=== PATIENT | female | born 1970 | race American Indian/Alaskan Native ===

== ENCOUNTER 2017-10-25 17:05 | Emergency (ER) | payer SELFPAY ==
--- NOTE | 2017-10-25 23:54 | Emergency Department Report ---
- General Chief Complaint: Upper Respiratory Infection Stated Complaint: FLU LIKE SYMPTOMS Time Seen by Provider: 10/25/17 23:24 Source: patient Mode of arrival: Ambulatory Limitations: No Limitations - History of Present Illness Initial Comments: 47-year-old female past medical history none presents with complaint of 5 days of sore throat nasal congestion and nasal drainage slightly productive cough. Patient awake alert and oriented 3 not in acute distress accompanied by at bedside. Primarily complaining of slightly productive cough. States she has multiple sick contacts at home with cold-like symptoms. Denies dysuria hematuria or abdominal pain chest pain shortness of breath at rest palpitations. Denies any recent travel denies any rash. Denies diffuse body aches. States she has been taking [id number] cold medicine with minimal relief of her symptoms. MD Complaint: cough, rhinorrhea, nasal congestion Onset/Timin -: days(s) Severity: mild Improves With: OTC cold medicine Context: sick contacts Associated Symptoms: rhinorrhea, nasal congestion, sore throat, cough Treatments Prior to Arrival: Acetaminophen - Related Data Previous Rx's Medication Instructions Recorded Last Taken Type Cyclobenzaprine [Flexeril 10mg] 10 mg PO TID PRN #30 tablet 11/17/14 Unknown Rx HYDROcodone/APAP 5-325 [[place] 1 each PO Q6HR PRN #20 tablet 11/17/14 Unknown Rx 5-325 mg TAB] Ibuprofen [Motrin] 600 mg PO Q8H PRN #60 tablet 11/17/[address] [Voltaren Dr] 75 mg PO Q12H #30 tablet 12/13/14 Unknown Rx traMADol [Ultram 50 MG tab] 50 mg PO Q6HR PRN #16 tablet 12/13/14 Unknown Rx Benzonatate [Tessalon Perles] 100 mg PO Q8HR PRN #30 capsule 10/25/17 Unknown Rx Dextromethorphan/Benzocaine 1 each PO Q4H PRN #1 box 10/25/17 Unknown Rx [Cepacol Sorethroat-Cough Logan] Naproxen 500 mg PO BID PRN #30 tablet 10/25/17 Unknown Rx Phenylephrine/Dm/Acetaminop/GG 10 ml PO Q6H PRN #1 bottle 10/25/17 Unknown Rx [Mucinex Mcjv-Drr-Sinbjqfbyr Lq] Allergies Allergy/AdvReac Type Severity Reaction Status Date / Time Penicillins AdvReac Unknown Verified 11/17/14 16:00 ED Review of Systems ROS: Stated complaint: FLU LIKE SYMPTOMS Other details as noted in HPI Constitutional: denies: chills, fever Eyes: denies: eye pain, eye discharge, vision change ENT: throat pain, congestion. denies: ear pain Respiratory: cough. denies: shortness of breath, wheezing Cardiovascular: denies: chest pain, palpitations Endocrine: no symptoms reported Gastrointestinal: denies: abdominal pain, nausea, diarrhea Genitourinary: denies: urgency, dysuria, discharge Musculoskeletal: denies: back pain, joint swelling, arthralgia Skin: denies: rash, lesions Neurological: denies: headache, weakness, paresthesias Psychiatric: denies: anxiety, depression Hematological/Lymphatic: denies: easy bleeding, easy bruising ED Past Medical Hx - Past Medical History Previous Medical History?: No - Surgical History Past Surgical History?: Yes Additional Surgical History: Tubal Ligation - Social History Smoking Status: Never Smoker Substance Use Type: Alcohol - Medications Home Medications: Home Medications Medication Instructions Recorded Confirmed Last Taken Type Cyclobenzaprine [Flexeril 10mg] 10 mg PO TID PRN #30 tablet 11/17/14 12/13/14 Unknown Rx HYDROcodone/APAP 5-325 [[place] 1 each PO Q6HR PRN #20 tablet 11/17/14 12/13/14 Unknown Rx 5-325 mg TAB] Ibuprofen [Motrin] 600 mg PO Q8H PRN #60 tablet 11/17/14 12/13/[address] [Danish Ross] 75 mg PO Q12H #30 tablet 12/13/14 Unknown Rx traMADol [Ultram 50 MG tab] 50 mg PO Q6HR PRN #16 tablet 12/13/14 Unknown Rx Benzonatate [Tessalon Perles] 100 mg PO Q8HR PRN #30 capsule 10/25/17 Unknown Rx Dextromethorphan/Benzocaine 1 each PO Q4H PRN #1 box 10/25/17 Unknown Rx [Cepacol Sorethroat-Cough Logan] Naproxen 500 mg PO BID PRN #30 tablet 10/25/17 Unknown Rx Phenylephrine/Dm/Acetaminop/GG 10 ml PO Q6H PRN #1 bottle 10/25/17 Unknown Rx [Mucinex Esge-Kzo-Apxlzulxmo Lq] ED Physical Exam - General Limitations: No Limitations General appearance: alert, in no apparent distress - Head Head exam: Present: atraumatic, normocephalic - Eye Eye exam: Present: normal appearance, PERRL, EOMI - ENT ENT exam: Present: normal orophraynx (no peritonsillar abscess no tonsillar exudates uvula is midline), mucous membranes moist - Neck Neck exam: Present: normal inspection, full ROM - Respiratory Respiratory exam: Present: normal lung sounds bilaterally (lungs clear to auscultation bilaterally on exam). Absent: respiratory distress - Cardiovascular Cardiovascular Exam: Present: regular rate, normal rhythm. Absent: systolic murmur, diastolic murmur, rubs, gallop - GI/Abdominal GI/Abdominal exam: Present: soft, normal bowel sounds - Extremities Exam Extremities exam: Present: normal inspection - Back Exam Back exam: Present: normal inspection - Neurological Exam Neurological exam: Present: alert, oriented X3, CN II-XII intact, normal gait - Psychiatric Psychiatric exam: Present: normal affect, normal mood - Skin Skin exam: Present: warm, dry, intact, normal color. Absent: rash ED Course Vital Signs 10/25/17 10/25/17 17:52 23:57 Temperature 99.4 F 99 F Pulse Rate 68 81 Respiratory 20 18 Rate Blood Pressure 123/84 Blood Pressure 126/71 [Left] O2 Sat by Pulse 100 99 Oximetry ED Medical Decision Making - Medical Decision Making A/P: URI, viral syndrome 1-naproxen, Mucinex, Tessalon Perles, cepacol lozenges 2-f/u primary care doctor 3-chest x-ray unremarkable, flu swab negative, strep swab negative Critical care attestation.: If time is entered above; I have spent that time in minutes in the direct care of this critically ill patient, excluding procedure time. ED Disposition Clinical Impression: Viral syndrome Upper respiratory infection Qualifiers: URI type: unspecified viral URI Qualified Code(s): J06.9 - Acute upper respiratory infection, unspecified Disposition: - TO HOME OR SELFCARE Is pt being admited?: No Does the pt Need Aspirin: No Condition: Stable Instructions: Upper Respiratory Infection (ED), Viral Syndrome (ED), Cold Symptoms (ED) Prescriptions: Benzonatate [Tessalon Perles] 100 mg PO Q8HR PRN #30 capsule PRN Reason: Cough Dextromethorphan/Benzocaine [Cepacol Sorethroat-Cough Logan] 1 each PO Q4H PRN #1 box PRN Reason: Cough Naproxen 500 mg PO BID PRN #30 tablet PRN Reason: Fever Phenylephrine/Dm/Acetaminop/GG [Mucinex Fcin-Eqk-Tlcusmpdyn Lq] 10 ml PO Q6H PRN #1 bottle PRN Reason: Cough Referrals: [facility] [Outside] - 3-5 Days [facility] [place] [Outside] - 3-5 Days Forms: Accompanied Note, Work/School Release Form(ED) Time of Disposition: 23:53
[2017-10-25 23:58] VITALS: BP 126/71
--- NOTE | 2017-10-26 00:29 | XRay Report ---
FINAL REPORT EXAM: XR CHEST ROUTINE 2V HISTORY: cough ? PNA TECHNIQUE: PA and lateral views of the chest were submitted. FINDINGS: Heart size mediastinum appear normal. The lungs are clear. Pleural fluid is not seen. The bones and soft tissues appear well maintained. IMPRESSION: Within normal limits.
== END 2017-10-26 00:05 | disposition home or self-care (01) ==
LOC: ED 17:05
DX: B34.9 Viral infection, unspecified (principal); J06.9 Acute upper respiratory infection, unspecified; Z88.0 Allergy status to penicillin
CPT/HCPCS: 71046; 87116; 87400; 87430